=== PATIENT | male | born 1950 | race Caucasian/White ===

== ENCOUNTER → 2019-09-26 | Outpatient (CLI) | payer OTHER ==
[~2019-09-26] VITALS: Ht 172.7 cm; Wt 81.7 kg
[~2019-09-26] MED LIST: ADDERALL 30 MG30 MG PO; ENBREL50 MG/1 M1 SUBQ; LAMICTAL200 MG PO; NORVASC10 MG PO; OMEPRAZOLE20 M3 PO; PLAQUENIL200 MG PO; PROSCAR 5MG TABL5 MG PO
--- NOTE | 2019-09-29 09:17 | P ---
[facility] [place] [place] [address] PROCEDURE REPORT Name: TK MALONEY Room #: [facility]#: [id number] Admission: 09/26/19 Attend Phys: Jesus Alberto Casas Discharge: Date of : 54 Report #: [id number] THIS REPORT FOR: //name// CC: Jesus Alberto Hu Sharonda MURILLO DATE OF SERVICE: 09/26/2019 PROCEDURE PERFORMED: Colonoscopy with biopsies. HISTORY OF PRESENT ILLNESS: The patient is a 69-year-old male who presents today for routine screening colonoscopy. Last colonoscopy was approximately 10 years ago. He denies any symptoms. No family history of colon cancer. DESCRIPTION OF PROCEDURE: The risks and benefits of the procedure were explained to the patient, those risks including but not limited to bleeding, perforation and the risk of sedation. He understood these risks and gave informed consent. Sedation was given using propofol per Anesthesia. Next, a digital rectal exam was initially performed, which showed small external hemorrhoid, otherwise normal. Next, using a standard Olympus colonoscope, the scope was placed in the patient's anus and advanced under direct vision to the cecum. The overall prep was excellent. Two 3-4 mm sessile polyps were noted in the cecum. These were removed with cold forceps, otherwise normal. The ileocecal valve was normal. Three 4 mm sessile polyps were noted in the ascending colon, all removed with cold forceps. Transverse and descending colon were normal. Multiple diverticula noted in the sigmoid colon. No evidence of inflammation, otherwise normal. The rectal mucosa was normal. On retroflexion, small nonbleeding internal hemorrhoids were noted. Scope was then withdrawn and the procedure terminated. The patient tolerated the procedure well. IMPRESSION: 1. Small colonic polyps. 2. Sigmoid diverticulosis. 3. Small internal and external hemorrhoids. 4. Otherwise normal colonoscopy. RECOMMENDATIONS: 1. Await biopsy results. 2. Repeat colonoscopy in 5 years. [facility] [address] [place] [address] PROCEDURE REPORT Name: TK MALONEY Room #: [facility]#: [id number] Admission: 09/26/19 Attend Phys: Jesus Alberto Casas Discharge: Date of : 54 Report #: [id number] Thank you for allowing me to participate in his care. <ELECTRONICALLY SIGNED> By: Jesus Alberto Hu MD 09/29/1917 0854 9 Jesus Alberto Hu MD /nt
--- NOTE | 2019-09-29 16:06 | PATH ---
[facility] [place] [address] [place] [address] PATHOLOGY RPT PROCEDURE Name: TK MALONEY Room #: [facility].#: [id number] Admission: 09/26/19 Date of : 54 Discharge: Report #: [id number] Path Case #: [id number] Accession Number: [id number] . 01 Material submitted: . PART A: cecum - POLYP AT CECUM X2 PART B: colon - POLYP AT ASCENDING COLON. Modifiers: ascending . 01 Clinical history: . Pre-OP DX: Screening colonoscopy Post-OP DX: Colon polyps, diverticulosis . 02 Diagnosis: A. Polyp x 2, at cecum, endoscopic biopsy: - Inflamed tubular adenoma x 2. - Negative for high grade dysplasia. . B. Polyp, at ascending colon, endoscopic biopsy: - Tubular adenoma identified in all fragments sampled. - Negative for high grade dysplasia. (IUV/db; 09/29/2019) LBQ 09/29/2019 1315 Local . 02 Electronically signed: . Liya Baird MD, Pathologist NPI- [id number] . 01 Gross description: . A. Received in formalin labeled "César, Tk, polyp at cecum," and additionally labeled on the requisition as "x2," are 2 segments of carreon soft tissue measuring 0.9 x 0.4 x 0.2 cm in aggregate dimensions and ranging from 0.4 to 0.5 cm in maximum dimension. The specimen is submitted entirely in cassette A1. . B. Received in formalin labeled "Duck, Tk, polyp at ascending colon," are 6 segments of carreon soft tissue measuring 1.4 x 0.9 x 0.3 cm in aggregate dimensions and ranging from 0.1 to 0.4 cm in maximum dimension. The specimen is submitted entirely in cassette B1. (TSD; 09/26/2019) TOB/TOB 09/26/2019 2217 Local . 02 Pathologist provided ICD-10: D12.0, D12.2 . 02 CPT . 613300, 828295 Specimen Comment: A courtesy copy of this report has been sent to [phone], [place] [address] PATHOLOGY RPT PROCEDURE Name: TK MALONEY W [id number] Admission: 09/26/19 Date of : 54 Discharge: Report #: [id number] Path Case #: [id number] Specimen Comment: [id number] Specimen Comment: Report sent to / DR BANKS Performed at: [address], [place], [place] [id number] MD Jose Jenkins MD Phone: [phone] Performed at: [address] [id number] MD Liya Baird MD Phone: [phone]
== END | disposition home or self-care (01) ==
LOC: GI 07:05
DX: Z12.11 Encounter for screening for malignant neoplasm of colon (principal); D12.0 Benign neoplasm of cecum; D12.2 Benign neoplasm of ascending colon; K57.30 Diverticulosis of large intestine without perforation or abscess without bleeding; K64.8 Other hemorrhoids; K64.4 Residual hemorrhoidal skin tags; K21.9 Gastro-esophageal reflux disease without esophagitis; I10 Essential (primary) hypertension; N28.9 Disorder of kidney and ureter, unspecified; F31.9 Bipolar disorder, unspecified; N40.0 Benign prostatic hyperplasia without lower urinary tract symptoms; Z98.890 Other specified postprocedural states; Z85.828 Personal history of other malignant neoplasm of skin; Z79.899 Other long term (current) drug therapy
CPT/HCPCS: 62110; 62900